=== PATIENT | male | born 1945 | race Caucasian/White ===

== ENCOUNTER 2017-08-11 18:54 | Emergency (ER) | payer MEDICARE ==
[~2017-08-11] VITALS: Ht 182.8 cm; Wt 90.7 kg
[2017-08-11] MEDS ORDERED: AUGMENTIN 875875 MG PO (19:30)
== END 2017-08-11 19:36 | disposition home or self-care (01) ==
LOC: ED 18:54
DX: S90.512A Abrasion, left ankle, initial encounter (principal); S90.511A Abrasion, right ankle, initial encounter; F17.200 Nicotine dependence, unspecified, uncomplicated; W55.03XA Scratched by cat, initial encounter; Y93.89 Activity, other specified; Y92.89 Other specified places as the place of occurrence of the external cause; Y99.9 Unspecified external cause status